=== PATIENT | female | born 1975 | race Caucasian/White ===

== ENCOUNTER 2020-06-18 14:45 | Inpatient (IN) ==
[2020-06-18] MEDS ORDERED: Heparin DRIP 25,000 UNITS BAG 25,000 UNITS/500 ML BAG IV SCH (18:15)
[2020-06-18] MEDS ORDERED: Dextrose 50% Syringe 50 ml 25 GM/50 ML SYRINGE IV PUSH PRN (18:24)
[2020-06-18] MEDS ORDERED: Heparin 5000 UNITS/ML 1 mL VIAL IV SCH (19:00)
[2020-06-18 20:31] LABS: Hematocrit 31 % (35-47); Hemoglobin 10.2 g/dL (12.0-16.0); Mean Corpuscular HGB Conc 34 g/dL (31-36); Mean Corpuscular Hemoglobin 28 pg (27-31); Mean Corpuscular Volume 82 fL (80-97); Platelet Count 232 10^3/uL (150-450); Red Blood Count 3.71 10^6 /uL (3.70-4.87); Red Cell Distribution Width 18 % (10-15); White Blood Count 15.6 10^3/uL (3.5-10.8)
[2020-06-18 20:41] LABS: Activated Partial Thrombo Time 43.3 seconds (26.0-38.0); INR 1.1 (0.82-1.09)
[2020-06-18 20:47] LABS: ALT 35 U/L (7-52); AST 19 U/L (13-39); Albumin 3.6 g/dL (3.2-5.2); Albumin/Globulin Ratio 1.3 (1-3); Alkaline Phosphatase 94 U/L (34-104); Anion Gap 8 mmol/L (2-11); BUN/Creatinine Ratio 16.5 (8-20); Blood Urea Nitrogen 15 mg/dL (6-24); CO2 Carbon Dioxide 21 mmol/L (22-32); Calcium 8.5 mg/dL (8.6-10.3); Chloride 107 mmol/L (101-111); EGFR African American 81.6 (>60); EGFR Non-African American 67.5 (>60); Globulin 2.7 g/dL (2-4); Glucose 300 mg/dL (70-100); Potassium 3.7 mmol/L (3.5-5.0); Sodium 136 mmol/L (135-145); Total Protein 6.3 g/dL (6.4-8.9)
[2020-06-18 20:53] LABS: Troponin I 0.13 ng/mL (<0.03)
[2020-06-18 21:00] LABS: Polychromasia 1+
[2020-06-18 21:01] LABS: ABS Basophils 0.1 10^3/ul (0-0.2); ABS Eosinophils 0.3 10^3/ul (0-0.6); ABS Lymphocytes 2.6 10^3/ul (1.0-4.8); ABS Monocytes 1.4 10^3/ul (0-0.8); ABS Neutrophils 11.1 10^3/ul (1.5-7.7); ABS Nucleated RBC 0.1 10^3/ul; Nucleated Red Blood Cells % 0.4
[2020-06-18] MEDS ORDERED: HYDROcodone/ACETAMIN 5/325 mg TAB PO PRN (21:19)
[2020-06-18] MEDS: Insulin GLARGINE 100 un/ml 10 ml VIAL SUBCUT SCH (22:28)
[2020-06-19] MEDS ORDERED: Vancomycin per Pharmacy 1 EA NOTE FOLLOW UP SCH (01:00)
[2020-06-19] MEDS ORDERED: Vancomycin 2,000 MG in NS 0.9% 500 ml BAG 500 ML IVPB ONE (01:15)
[2020-06-19] MEDS: Cefepime 2 GM in Dextrose 2 GM/50 ML BAG IV SCH ×2 (01:23→13:44)
[2020-06-19 05:26] LABS: Hematocrit 29 % (35-47); Hemoglobin 9.4 g/dL (12.0-16.0); Mean Corpuscular HGB Conc 33 g/dL (31-36); Mean Corpuscular Hemoglobin 27 pg (27-31); Mean Corpuscular Volume 83 fL (80-97); Mean Platelet Volume 8.1 fL (7.4-10.4); Platelet Count 209 10^3/uL (150-450); Red Blood Count 3.48 10^6 /uL (3.70-4.87); Red Cell Distribution Width 18 % (10-15); White Blood Count 15.7 10^3/uL (3.5-10.8)
[2020-06-19 05:44] LABS: ABS Eosinophils 0.3 10^3/ul (0-0.6); ABS Lymphocytes 2.2 10^3/ul (1.0-4.8); ABS Monocytes 1.4 10^3/ul (0-0.8); ABS Neutrophils 11.8 10^3/ul (1.5-7.7); Eosinophil % 1.8 %; Lymphocyte % 13.8 %; Nucleated Red Blood Cells % 0.1
[2020-06-19 05:51] LABS: Troponin I 0.15 ng/mL (<0.03)
[2020-06-19 06:10] LABS: Anion Gap 8 mmol/L (2-11); BUN/Creatinine Ratio 12.4 (8-20); Blood Urea Nitrogen 11 mg/dL (6-24); CO2 Carbon Dioxide 21 mmol/L (22-32); Calcium 8.4 mg/dL (8.6-10.3); Chloride 107 mmol/L (101-111); EGFR African American 83.8 (>60); EGFR Non-African American 69.2 (>60); Glucose 338 mg/dL (70-100); Potassium 3.5 mmol/L (3.5-5.0); Sodium 136 mmol/L (135-145)
[2020-06-19] MEDS ORDERED: Potassium Chlor 20 meq TAB.ER PO ONE (06:40)
[2020-06-19] MEDS: HYDROcodone/ACETAMIN 5/325 mg TAB PO PRN ×4 (07:27→20:44)
[2020-06-19] MEDS ORDERED: Perflutren Lipid Microsphere 3 ML VIAL ONE (07:29)
[2020-06-19] MEDS: CMCS: Vortioxetine 10 mg TAB (NF) PO SCH (09:37)
[2020-06-19] MEDS ORDERED: Alteplase (100 mg Vial) 100 MG in Premix IV 100 ML IV ONE (16:16)
[2020-06-19] MEDS ORDERED: Lorazepam PYXIS KEY PRN (16:53)
[2020-06-19] MEDS ORDERED: LORazepam 2 mg VIAL 1 ml IV PUSH ONE (16:53)
[2020-06-19] MEDS ORDERED: Heparin 5000 UNITS/ML 1 mL VIAL IV SCH (20:00)
[2020-06-19] MEDS: Heparin DRIP 25,000 UNITS BAG 25,000 UNITS/500 ML BAG IV SCH (20:34)
[2020-06-19] MEDS ORDERED: Senna TAB 8.6 mg TAB PO PRN (21:00)
[2020-06-19] MEDS: Insulin GLARGINE 100 un/ml 10 ml VIAL SUBCUT SCH (21:00)
[2020-06-20] MEDS: Cefepime 2 GM in Dextrose 2 GM/50 ML BAG IV SCH ×4 (01:09→21:21)
[2020-06-20 05:09] LABS: Hematocrit 26 % (35-47); Hemoglobin 8.6 g/dL (12.0-16.0); Mean Corpuscular HGB Conc 34 g/dL (31-36); Mean Corpuscular Hemoglobin 28 pg (27-31); Mean Corpuscular Volume 83 fL (80-97); Mean Platelet Volume 7.8 fL (7.4-10.4); Platelet Count 163 10^3/uL (150-450); Red Blood Count 3.08 10^6 /uL (3.70-4.87); Red Cell Distribution Width 18 % (10-15); White Blood Count 10.5 10^3/uL (3.5-10.8)
[2020-06-20 05:27] LABS: BUN/Creatinine Ratio 10.4 (8-20); Calcium 8.3 mg/dL (8.6-10.3); EGFR African American 76.8 (>60); EGFR Non-African American 63.4 (>60); Magnesium 1.8 mg/dL (1.9-2.7); Phosphorus 4.3 mg/dL (2.5-5.0)
[2020-06-20 05:28] LABS: INR 1.14 (0.82-1.09)
[2020-06-20 05:34] LABS: ABS Eosinophils 0.2 10^3/ul (0-0.6); ABS Lymphocytes 1.9 10^3/ul (1.0-4.8); ABS Monocytes 0.9 10^3/ul (0-0.8); ABS Neutrophils 7.5 10^3/ul (1.5-7.7); ABS Nucleated RBC 0.1 10^3/ul; Eosinophil % 1.9 %; Lymphocyte % 17.8 %; Nucleated Red Blood Cells % 0.6
[2020-06-20 05:49] LABS: Activated Partial Thrombo Time >240.0 seconds (26.0-38.0)
[2020-06-20] MEDS ORDERED: Magnesium Sulfate 2 gm BAG 2 GM/50 ML BAG IVPB ONE (05:50)
[2020-06-20] MEDS: HYDROcodone/ACETAMIN 5/325 mg TAB PO PRN ×2 (08:21→19:44)
[2020-06-20] MEDS: CMCS: Vortioxetine 10 mg TAB (NF) PO SCH (08:21)
[2020-06-20] MEDS ORDERED: Influenza VAC *QUAD* 2020-21* 0.5 ML SYRINGE IM ONE (09:00)
[2020-06-20] MEDS ORDERED: NS 0.9% 500 ml BAG 500 ML IV ONE (10:31)
[2020-06-20] MEDS: Heparin DRIP 25,000 UNITS BAG 25,000 UNITS/500 ML BAG IV SCH (11:38)
[2020-06-20] MEDS ORDERED: Methylphenidate ER 18 mg TAB PO SCH (15:00)
[2020-06-20] MEDS: Insulin GLARGINE 100 un/ml 10 ml VIAL SUBCUT SCH (21:08)
[2020-06-21] MEDS: Heparin DRIP 25,000 UNITS BAG 25,000 UNITS/500 ML BAG IV SCH (03:35)
[2020-06-21 05:14] LABS: Hematocrit 25 % (35-47); Hemoglobin 8.4 g/dL (12.0-16.0); Mean Corpuscular HGB Conc 33 g/dL (31-36); Mean Corpuscular Hemoglobin 28 pg (27-31); Mean Corpuscular Volume 84 fL (80-97); Mean Platelet Volume 8.3 fL (7.4-10.4); Platelet Count 165 10^3/uL (150-450); Red Blood Count 3.04 10^6 /uL (3.70-4.87); Red Cell Distribution Width 18 % (10-15); White Blood Count 9.5 10^3/uL (3.5-10.8)
[2020-06-21 05:29] LABS: BUN/Creatinine Ratio 8.9 (8-20); Calcium 8.4 mg/dL (8.6-10.3); EGFR African American 82.7 (>60); EGFR Non-African American 68.3 (>60); Potassium 3.7 mmol/L (3.5-5.0)
[2020-06-21] MEDS: Cefepime 2 GM in Dextrose 2 GM/50 ML BAG IV SCH ×3 (05:43→22:02)
[2020-06-21] MEDS ORDERED: Potassium Chlor 20 meq TAB.ER PO ONE (05:51)
[2020-06-21 07:19] LABS: ABS Eosinophils 0.1 10^3/ul (0-0.6); ABS Lymphocytes 1.2 10^3/ul (1.0-4.8); ABS Monocytes 0.7 10^3/ul (0-0.8); ABS Neutrophils 7.4 10^3/ul (1.5-7.7); ABS Nucleated RBC 0.1 10^3/ul; Eosinophil % 1.6 %; Lymphocyte % 12.6 %; Nucleated Red Blood Cells % 0.6
[2020-06-21 07:22] LABS: Polychromasia 1+
[2020-06-21] MEDS: HYDROcodone/ACETAMIN 5/325 mg TAB PO PRN ×3 (09:21→20:44)
[2020-06-21] MEDS: CMCS: Vortioxetine 10 mg TAB (NF) PO SCH (09:31)
[2020-06-21] MEDS ORDERED: Insulin GLARGINE 100 un/ml 10 ml VIAL SUBCUT SCH (21:00)
[2020-06-22] MEDS: Cefepime 2 GM in Dextrose 2 GM/50 ML BAG IV SCH (05:33)
[2020-06-22 07:14] LABS: BUN/Creatinine Ratio 9.5 (8-20); Calcium 8.7 mg/dL (8.6-10.3); EGFR African American 89.5 (>60); Potassium 3.6 mmol/L (3.5-5.0)
[2020-06-22] MEDS: CMCS: Vortioxetine 10 mg TAB (NF) PO SCH (07:28)
[2020-06-22 08:08] LABS: Hematocrit 28 % (35-47); Hemoglobin 8.8 g/dL (12.0-16.0); Mean Corpuscular HGB Conc 32 g/dL (31-36); Mean Corpuscular Hemoglobin 27 pg (27-31); Mean Corpuscular Volume 85 fL (80-97); Platelet Count 172 10^3/uL (150-450); Red Blood Count 3.24 10^6 /uL (3.70-4.87); Red Cell Distribution Width 19 % (10-15); White Blood Count 7.8 10^3/uL (3.5-10.8)
[2020-06-22 08:13] VITALS: BP 100/63
[2020-06-22 09:03] LABS: ABS Eosinophils 0.1 10^3/ul (0-0.6); ABS Monocytes 0.4 10^3/ul (0-0.8); ABS Neutrophils 6.2 10^3/ul (1.5-7.7); Eosinophil % 1.2 %; Lymphocyte % 12.9 %; Nucleated Red Blood Cells % 0.4
== END 2020-06-22 12:00 | disposition home or self-care (01) | DRG 134 ==
LOC: ICU 17:51
PROVIDERS: ADMIT Internal Medicine; ATTEND Internal Medicine